=== PATIENT | female | born 1970 ===

== ENCOUNTER 2018-02-20 16:46 | Emergency (ER) | payer BC ==
[2018-02-20 17:00] VITALS: RESP 18; TEMP 98.4; O2SAT 99
[2018-02-20] MEDS ORDERED: Amoxicillin-Clav 875-125 mg Tab PO STA (17:31)
[2018-02-20] MEDS ORDERED: Amoxicillin-Clav 875-125 mg Tab PO ONE (17:58)
--- NOTE | 2018-02-20 17:58 | ED PDOC ---
HPI: Dental Pain/Injury Time Seen by Provider: 02/20/18 17:07 Chief Complaint (Nursing): Dental Pain Chief Complaint (Provider): Dental Pain History Per: Patient History/Exam Limitations: no limitations Onset/Duration Of Symptoms: Other (x1 week) Current Symptoms Are (Timing): Still Present Additional Complaint(s): 47 year old female presents to the ED for evaluation of intermittent right lower dental pain for the past week, which worsened this morning. Patient last took motrin at 13:00 today with minimal relief. States pain radiates to the ear when severe and notes that she does have a dentist to follow up with, just has not seen him/her yet. Patient is waiting for an appointment. Denies fever , chills, SOB/cough, or throat pain. PMD: Milvia Oneill LMP: > 1 year ago Past Medical History Reviewed: Historical Data, Nursing Documentation, Vital Signs Vital Signs: Last Vital Signs Temp 98.4 F 02/20/18 16:57 Pulse 68 02/20/18 16:57 Resp 18 02/20/18 16:57 BP 160/90 H 02/20/18 16:57 Pulse Ox 99 02/20/18 16:57 - Medical History PMH: HTN - Surgical History Surgical History: (x3) - Family History Family History: States: Unknown Family Hx - Social History Current smoker - smoking cessation education provided: No Alcohol: Social Drugs: Denies - Home Medications Home Medications: Ambulatory Orders Medication Instructions Recorded Acetaminophen [Acetaminophen 8 650 mg PO Q8 PRN #21 tablet.er 02/20/18 Hour] Amoxicillin/Clavulanate [Augmentin 1 tab PO BID #14 tab 02/20/18 875 MG-125 MG] Naproxen 500 mg PO BID PRN #20 tab 02/20/18 - Allergies Allergies/Adverse Reactions: Allergies Allergy/AdvReac Type Severity Reaction Status Date / Time No Known Allergies Allergy Verified 02/20/18 16:57 Review of Systems ROS Statement: Except As Marked, All Systems Reviewed And Found Negative Constitutional: Negative for: Fever, Chills ENT: Positive for: Other (Right lower dental pain radiating to ear). Negative for: Throat Pain Respiratory: Negative for: Shortness of Breath Physical Exam - Reviewed Nursing Documentation Reviewed: Yes Vital Signs Reviewed: Yes - Physical Exam Comments: GENERAL APPEARANCE: Patient is awake, alert, oriented x 3, in no acute distress. Resting comfortably. SKIN: Warm, dry; (-) cyanosis. ENMT: (+) tenderness to right posterior lower molars with fillings in place. (- ) gingival swelling (-) erythema (-) fluctuance; poor dentition throughout. Pharynx: Clear (+) uvula midline (-) pharyngeal erythema (-) exudate. TMs: nonbulging and nonerythematous bilaterally. Airway patent: (-) stridor. (-) Submandibular or submental neck swelling (-) pseudomembranes NECK: Supple, FROM (-) tenderness, (-) lymphadenopathy LUNGS: clear to auscultation bilaterally, (-) wheezing, (-) rhonchi (-) rales. CARDIAC: RRR - ECG O2 Sat by Pulse Oximetry: 99 (RA) Pulse Ox Interpretation: Normal Medical Decision Making Medical Decision Making: Initial Impression: Toothache, probable dental infection Initial Plan: Amoxicillin 1 tab PO Tylenol 650mg PO Re-evaluation 1830 Repeat HR: 69 Repeat BP: 142/70 On re-evaluation, patient reports improvement of symptoms. On exam, patient remains AAOx3, in no acute distress. Lungs clear to auscultation, cardiac RRR, repeat neuro exam shows no focal findings. Vitals stable. Lab/Diagnostic results d/w the patient in great detail. Diagnosis of toothache, probable dental infection d/w the patient. Based on history, exam and diagnostic results, plan will be for outpatient follow up with dental. Patient instructed to follow-up with dental in 1-2 days without fail. Advised to take medication as prescribed. Return to the emergency room at any time for any new or worsening symptoms. Patient states she fully agrees with and understands discharge instructions. States that she agrees with the plan and disposition. Verbalized and repeated discharge instructions and plan. I have given the patient opportunity to ask any additional questions. Scribe Attestation: Documented by Hang Townsend acting as a scribe for Nikky WINTER. Provider Scribe Attestation: All medical record entries made by the Scribe were at my direction and personally dictated by me. I have reviewed the chart and agree that the record accurately reflects my personal performance of the history, physical exam, medical decision making, and the department course for this patient. I have also personally directed, reviewed, and agree with the discharge instructions and disposition. Disposition - Clinical Impression Clinical Impression: Pain, dental, Dental infection - Patient ED Disposition Is Patient to be Admitted: No Counseled Patient/Family Regarding: Studies Performed, Diagnosis, Need For Followup, Rx Given - Disposition Disposition: Routine/Home Disposition Time: 18:30 Condition: STABLE Additional Instructions: La atencin mdica de emergencia que recibi hoy estaba dirigida a layne sntomas agudos. Si le prescribieron algn medicamento, llnelo y tome segn las indicaciones. Layne sntomas pueden tardar varios escalera en resolverse. Regrese al Departamento de Emergencia si layne sntomas empeoran, no mejoran o si tiene alg n otro problema. Comunquese con edmondson mdico en 2 escalera para gladys reevaluacin y seguimiento / o llame a jared de los mdicos / clnicas a los que winkler referido y que figura en el formulario de Informacin de visitas del paciente que se incluye en edmondson paquete de jody. Traiga todos los documentos que recibi al momento del jody junto con los medicamentos que est tomando en edmondson visita de seguimiento. Nuestro tratamiento no puede reemplazar la atencin mdica en curso por parte de un proveedor de atencin primaria (PCP) fuera del departamento de emergencias. Prescriptions: Acetaminophen [Acetaminophen 8 Hour] 650 mg PO Q8 PRN #21 tablet.er PRN Reason: Pain, Moderate (4-7) Amoxicillin/Clavulanate [Augmentin 875 MG-125 MG] 1 tab PO BID #14 tab Naproxen 500 mg PO BID PRN #20 tab PRN Reason: Pain, Moderate (4-7) Instructions: Dental Pain Forms: [facility] (Yoruba) Print Language: ECUADOREAN - POA Present On Arrival: None
[2018-02-20 18:31] VITALS: BP 142/70; PULSE 69
== END 2018-02-20 18:32 | disposition home or self-care (01) ==
LOC: H.ER 16:46
DX: K08.89 Other specified disorders of teeth and supporting structures (principal); K04.7 Periapical abscess without sinus; I10 Essential (primary) hypertension